=== PATIENT | female | born 1955 | race Caucasian/White ===

== ENCOUNTER 2022-03-12 16:16 | Observation (INO) ==
[2022-03-12] MEDS ORDERED: Naloxone 0.4 MG/ML INJ IVP PRN (20:32)
[2022-03-12] MEDS ORDERED: Acetaminophen 325 MG TABLET PO PRN (20:32)
[2022-03-12] MEDS ORDERED: Ondansetron 4 MG/2 ML VIAL IVP PRN (20:32)
[2022-03-12] MEDS ORDERED: Nitroglycerin 0.4 MG TAB.SUBL SL PRN (20:42)
[2022-03-12] MEDS: Morphine Sulfate 2 MG/ML SYRINGE IVP PRN (21:12)
[2022-03-12 22:54] LABS: Bilirubin,Urine Negative (Negative); Blood,Urine Negative (Negative); Clarity,Urine Clear (Clear); Color,Urine Yellow (Yellow); Glucose,Urine (UA) Normal (Normal); Ketones,Urine Negative (Negative); Leukocyte Esterase,Urine Negative (Negative); Nitrite,Urine Negative (Negative); Protein,Urine Negative (Neg-Trace); Specific Gravity,Urine 1.019 (1.010-1.025); Urobilinogen,Urine Normal (Normal)
[2022-03-13] MEDS: *HR* Heparin 5,000 UNIT/ML VIAL SQ SCH ×4 (01:31→19:33)
[2022-03-13] MEDS: Morphine Sulfate 2 MG/ML SYRINGE IVP PRN ×2 (01:34→19:24)
[2022-03-13 04:40] LABS: Hematocrit 43.9 % (35.3-44.9); Hemoglobin 14.8 g/dL (11.5-15.4); Mean Corpuscular HGB Conc 33.7 g/dL (31.6-35.5); Mean Platelet Volume 13.8 fL (9.4-12.4); Platelet Count 109 K/mcL (140-400); Red Blood Count 4.48 M/mcL (3.82-4.97); Red Cell Distribution Width 13.4 % (11.5-14.5); White Blood Count 8.1 K/mcL (4.3-11.1)
[2022-03-13 04:51] LABS: Prothrombin Time 10.9 Seconds (9.4-12.1)
[2022-03-13 04:53] LABS: Activated Partial Thrombo Time 31.6 Seconds (26.0-36.0)
[2022-03-13 05:03] LABS: BUN/Creatinine Ratio 18 (6-26); Blood Urea Nitrogen 17 mg/dL (8-23); Calcium 9.4 mg/dL (8.6-10.3); Carbon Dioxide 27 mEq/L (23-29); Chloride 106 mEq/L (98-107); Chol/HDL Ratio 2.8 (0-4.9); Cholesterol 117 mg/dL (< 200); Glucose 117 mg/dL (70-105); HDL Cholesterol 42 mg/dL (40-59); LDL Cholesterol,Calculated 43 mg/dL (< 100); Magnesium 1.9 mg/dL (1.6-2.6); Osmolality,Calculated 293 (280-300); Sodium 140 mEq/L (136-145); Triglycerides 161 mg/dL (< 150); Troponin I < 0.03 ng/mL (< 0.04)
[2022-03-13 05:14] LABS: Thyroid Stimulating Hormone 11.807 mcIU/mL (0.340-5.600)
[2022-03-13] MEDS ORDERED: Regadenoson 0.4 MG/5 ML SYRINGE IVP ONE (07:14)
[2022-03-13] MEDS: Aspirin Enteric Coated 81 MG Tablet PO SCH (11:33)
[2022-03-13] MEDS: Fluticasone Propionate Nasal 50 MCG/SPRAY BOTTLE NS SCH (11:33)
[2022-03-14 03:52] LABS: Hematocrit 42.7 % (35.3-44.9); Hemoglobin 14.5 g/dL (11.5-15.4); Mean Corpuscular Hemoglobin 33.2 pg (28.0-33.3); Mean Corpuscular Volume 97.7 fL (83.0-100.0); Mean Platelet Volume 13.2 fL (9.4-12.4); Red Blood Count 4.37 M/mcL (3.82-4.97); Red Cell Distribution Width 13.3 % (11.5-14.5); White Blood Count 7.2 K/mcL (4.3-11.1)
[2022-03-14 04:10] LABS: Calcium 8.9 mg/dL (8.6-10.3)
[2022-03-14] MEDS: *HR* Heparin 5,000 UNIT/ML VIAL SQ SCH ×2 (05:43→11:28)
[2022-03-14] MEDS ORDERED: Metoprolol XL (24 HR) Succ 50 MG TAB.ER.24H PO SCH (09:00)
[2022-03-14] MEDS: Aspirin Enteric Coated 81 MG Tablet PO SCH (09:58)
[2022-03-14] MEDS: Fluticasone Propionate Nasal 50 MCG/SPRAY BOTTLE NS SCH (09:58)
[2022-03-14 14:30] VITALS: BP 173/93; PULSE 62; TEMP 97.7; O2SAT 97
[2022-03-14] MEDS ORDERED: Isosorbide MONOnitrate (24 HR) 60 MG TAB.ER.24H PO SCH (15:15)
== END 2022-03-14 15:51 | disposition home or self-care (01) ==
LOC: 3BNU
PROVIDERS: ADMIT Internal Medicine; ATTEND Internal Medicine